=== PATIENT | female | born 1990 | race Caucasian/White ===

== ENCOUNTER → 2017-03-09 | Outpatient (CLI) | payer OTHER ==
[~2017-03-09] MED LIST: COLA100C5 PO; IBUP60TA PO; PERCOCET PO
[2017-03-10 09:23] LABS: FREE T4 0.93 NG/DL (0.76-1.46)
== END ==
LOC: M SMT 13:54
PROVIDERS: ATTEND Advanced Practice Midwife
DX: E06.9 Thyroiditis, unspecified (principal)

== ENCOUNTER → 2017-05-26 | Outpatient (CLI) | payer OTHER ==
--- NOTE | 2017-05-26 11:20 | REP ---
ULTRASOUND LEFT BREAST: HISTORY: Palpable lump for 2 weeks, breast feeding. Real-time sonographic evaluation of the left breast performed in the region of 11 to 3 o'clock in the region of a palpable abnormality. There is dense fibroglandular tissue present. No cystic or solid nodule is seen. IMPRESSION: ACR 2 benign. No cystic or solid nodule identified in the region of the reported palpable abnormality between 11 and 3 o'clock. Dense fibroglandular tissue is seen. Signed by Gael Best MD 05/26/2017 05:23 P
== END ==
LOC: M RAD 09:12
PROVIDERS: ATTEND Advanced Practice Midwife
DX: N63.21 Unspecified lump in the left breast, upper outer quadrant (principal)

== ENCOUNTER → 2017-12-04 | Outpatient (CLI) | payer OTHER ==
[2017-12-04 13:12] LABS: BASO % 0.1 % (0.0-1.0); EOS % 0.5 % (0.0-3.0); HEMOGLOBIN 14.3 g/dl (12.0-15.5); IMMATURE GRANULOCYTE % 0.4 % (0-3.0); LYMPH # 1.2 10^3/uL (1.5-6.5); LYMPH % 14.4 % (24.0-44.0); MEAN CORPUSCULAR HEMOGLOBIN 30.6 pg (27.0-33.0); MEAN CORPUSCULAR HGB CONC 34.9 g/dl (32.0-36.5); MEAN CORPUSCULAR VOLUME 87.6 fl (80.0-96.0); MONO # 0.5 10^3/uL (0.0-0.8); MONO % 5.7 % (0.0-5.0); NEUTROPHILS # 6.3 10^3/uL (1.8-7.7); NEUTROPHILS % 78.9 % (36.0-66.0); PLATELET COUNT, AUTOMATED 192 10^3/uL (150-450); RED BLOOD COUNT 4.68 10^6/uL (4.00-5.40); RED CELL DISTRIBUTION WIDTH 12.4 % (11.5-14.5)
[2017-12-04 14:04] LABS: RUBELLA IgG QUALITATIVE IMMUNE (IMMUNE)
[2017-12-04 14:07] LABS: HBsAg Prenatal NEGATIVE (NEGATIVE)
[2017-12-04 14:34] LABS: HIV 1&2 SCREEN CENTAUR NEGATIVE (NEGATIVE)
[2017-12-04 14:34] LABS: HEPATITIS C VIRUS ABY INDEX 0.1 INDEX (<0.8)
[2017-12-04 14:55] LABS: CHLAMYDIA DNA AMPLIFICATION NEGATIVE (NEGATIVE); GC DNA AMPLIFICATION NEGATIVE (NEGATIVE)
== END ==
LOC: M SMT 09:59
DX: Z34.81 Encounter for supervision of other normal pregnancy, first trimester (principal); Z3A.08 8 weeks gestation of pregnancy
CPT/HCPCS: 86762

== ENCOUNTER → 2018-01-27 | Outpatient (REF) | payer OTHER | LOC: M WUC 01-28 10:23 | DX: R35.0 Frequency of micturition (principal) ==

== ENCOUNTER → 2018-02-23 | Outpatient (CLI) | payer OTHER | LOC: M RAD 17:10 | DX: Z34.82 Encounter for supervision of other normal pregnancy, second trimester (principal) | CPT/HCPCS: 76811 ==

== ENCOUNTER → 2018-04-09 | Outpatient (CLI) | payer OTHER ==
[2018-04-09 17:29] LABS: GLUCOSE CHALLENGE TEST 1 HOUR 91 MG/DL (LESS THAN 140)
[2018-04-09 17:31] LABS: HEMATOCRIT 34.1 % (36.0-47.0); HEMOGLOBIN 11.7 g/dl (12.0-15.5); MEAN CORPUSCULAR HEMOGLOBIN 30.8 pg (27.0-33.0); MEAN CORPUSCULAR HGB CONC 34.3 g/dl (32.0-36.5); MEAN CORPUSCULAR VOLUME 89.7 fl (80.0-96.0); PLATELET COUNT, AUTOMATED 188 10^3/uL (150-450); RED CELL DISTRIBUTION WIDTH 13.4 % (11.5-14.5); WHITE BLOOD COUNT 9.3 10^3/uL (4.0-10.0)
== END ==
LOC: M SMT 13:12
DX: Z36.89 Encounter for other specified antenatal screening (principal)
CPT/HCPCS: 82950

== ENCOUNTER → 2018-06-15 | Outpatient (REF) | payer OTHER ==
[~2018-06-15] MED LIST changes: +PREN200C PO
== END ==
LOC: M LAB REF 17:06
PROVIDERS: ATTEND Advanced Practice Midwife
DX: O34.219 Maternal care for unspecified type scar from previous cesarean delivery (principal)

== ENCOUNTER 2018-07-05 05:35 | Inpatient (IN) | payer OTHER ==
[2018-07-05] VITALS (8 sets, daily range): BP systolic 96–105; BP diastolic 53–68
[~2018-07-05] VITALS: Ht 154.9 cm; Wt 66.0 kg
[2018-07-05] MEDS ORDERED: LR 1,000 ML IV ONE (05:45)
[2018-07-05] MEDS ORDERED: BICITRA 30ML SOLN UDC PO ONE (05:45)
[2018-07-05] MEDS ORDERED: TUMS500C PO (05:46)
[2018-07-05] MEDS ORDERED: LR 1,000 ML IV SCH ×2 (06:30→09:30)
[2018-07-05 06:34] LABS: HEMATOCRIT 35.2 % (36.0-47.0); HEMOGLOBIN 11.9 g/dl (12.0-15.5); MEAN CORPUSCULAR HEMOGLOBIN 30.6 pg (27.0-33.0); MEAN CORPUSCULAR HGB CONC 33.8 g/dl (32.0-36.5); MEAN CORPUSCULAR VOLUME 90.5 fl (80.0-96.0); PLATELET COUNT, AUTOMATED 161 10^3/uL (150-450); RED BLOOD COUNT 3.89 10^6/uL (4.00-5.40); WHITE BLOOD COUNT 11.6 10^3/uL (4.0-10.0)
[2018-07-05] MEDS ORDERED: NALOXONE INJ 0.4 MG/1 ML VIAL (J2310) IV PRN ×2 (07:44)
[2018-07-05] MEDS ORDERED: diphenhydrAMINE INJ 50MG/ML VIAL (J1200) IV PRN (07:44)
[2018-07-05] MEDS ORDERED: ONDANSETRON 4MG/2ML VIAL (J2405) IV PRN ×2 (07:44→09:15)
[2018-07-05] MEDS ORDERED: NALBUPHINE HCL 10 MG/ML AMP (J2300) IV PRN ×2 (07:44→09:30)
[2018-07-05] MEDS ORDERED: METOCLOPRAMIDE INJ 10MG/2ML VIAL (J2765) As Ordered ONE (07:52)
[2018-07-05] MEDS ORDERED: PHENYLephrine HCL 500 MCG/5 ML (100MCG/ML) SYRINGE (J2370) As Ordered ONE (07:52)
[2018-07-05] MEDS ORDERED: MORPHINE PRES-FREE INJ 10 MG/10 ML VIAL (J2274) As Ordered ONE (07:52)
[2018-07-05] MEDS ORDERED: OXYTOCIN INJ 10 UNITS/ML VIAL (J2590) As Ordered ONE (07:52)
[2018-07-05] MEDS ORDERED: FAMOTIDINE INJ 20MG/2ML VIAL (S0028) As Ordered ONE (07:55)
[2018-07-05] MEDS ORDERED: ONDANSETRON 4MG/2ML VIAL (J2405) As Ordered ONE (08:30)
[2018-07-05] MEDS ORDERED: OXYTOCIN DRIP 30 UNITS in APPROPRIATE DILUENT 1 EA IV SCH (09:07)
[2018-07-05] MEDS ORDERED: MOM 30ML SUSPENSION UDC PO PRN (09:15)
[2018-07-05] MEDS ORDERED: PERCOCET 5MG/325MG TAB PO PRN ×2 (09:15→09:30)
[2018-07-05] MEDS ORDERED: MEASLES,MUMPS,RUBELLA VACCINE INJ (MMR-II) (90707) SC SCH (09:15)
[2018-07-05] MEDS ORDERED: RHOGAM 300 MCG (1500 IU) INJ (J2790) IM SCH (09:15)
[2018-07-05] MEDS ORDERED: MEPERIDINE INJ 25 MG/ML VIAL (J2175) IV PRN (09:30)
[2018-07-05] MEDS ORDERED: KETOROLAC 30 MG/ML VIAL (J1885) IV PRN (09:30)
[2018-07-05] MEDS ORDERED: fentaNYL 100 MCG/2 ML INJECTION (J3010) IV PRN (09:30)
[2018-07-05] MEDS ORDERED: HYDROMORPHONE HCL 0.5 MG/ 0.5 ML SYRINGE (J1170 PER 1) IV PRN (09:30)
--- NOTE | 2018-07-05 09:34 | RO ---
DATE OF PROCEDURE: 07/05/2018 PREOPERATIVE DIAGNOSES: 1. Intrauterine at 39 weeks. 2. History of two prior sections for a repeat section. POSTOPERATIVE DIAGNOSES: 1. Intrauterine at 39 weeks. 2. History of two prior sections for a repeat section. PROCEDURE PERFORMED: Repeat section. SURGEON: Vivian Slade MD SNOW REMOVAL/PLOWING: Kavita Gill CNM ANESTHESIA: Spinal. ESTIMATED BLOOD LOSS: 500 mL. INTRAVENOUS FLUIDS: 1250 mL of Lactated Ringer's solution. URINE OUTPUT: 150 mL. SPECIMENS: None. PREOPERATIVE ANTIBIOTICS: 2 grams of Ancef. OPERATIVE FINDINGS: Liveborn male infant, scores of 9 and 9, weight was 3250 grams or 7 pounds 3 ounces. DESCRIPTION OF OPERATION: After informed consent was obtained and written consent was reviewed, the patient as brought to the operating room where spinal anesthesia was placed. She was then placed in supine position with a left lateral tilt. A Lezama catheter was placed and set to gravity. She was then prepped and draped in a normal sterile fashion. A time out in the operating room was then performed identifying the patient, procedure to be performed, as well as drug allergies. Anesthesia was tested and deemed to be adequate. Her previous Pfannenstiel skin incision was then excised. The incision was carried down to the underlying rectus fascia and was scored. This incision was extended bilaterally. The fascia was then dissected off the underlying rectus muscles, both superiorly and inferiorly. The rectus muscles were then in the midline. The peritoneum was then entered sharply. The vesicouterine peritoneum was then identified. It was tented and excised to create a bladder flap. The bladder blade was then placed to retract back the bladder. A curvilinear incision was then made in the lower uterine segment. An amniotomy was then performed productive of clear fluid. The head was brought to the level of the incision atraumatically and was delivered along with shoulders and corpus. The cord was then clamped times two and was cut. The infant was taken over to the warmer with a good cry. Placenta was then delivered grossly intact. The uterus was then exteriorized and cleared of all clots and debris. The uterine incision was then closed in two layers using #0 Vicryl first in a running locking fashion followed by a second layer for imbrication in a running, nonlocking fashion. Several figure-of-8 stitches were placed for hemostasis. The abdomen was then suctioned, the uterus was returned and the patient's abdomen was reinspected and noted to be hemostatic. The anterior peritoneum was then reapproximated with #3-0 Vicryl. The fascia was then closed using #0 Vicryl in a running nonlocking fashion. The subcutaneous tissue was then irrigated and suctioned. Several subdermal stitches were placed with #3-0 Vicryl. The skin was closed with #4-0 Monocryl in a subcuticular fashion. The incision was then cleaned and dried. Steri-Strips were applied over the incision, and the incision was then dressed. The patient was then taken over to recovery in stable condition. Counts were correct. The couple has decided to name their son, Toi. Kavita Gill, my neurosurgical physician assistant, play an essential role in the surgery. She assisted with tissue identification and retraction, delivery of the , as well as wound closure.
[2018-07-05] MEDS ORDERED: OXYTOCIN 30 UNITS IN 0.9% NaCl 500ML IV BAG (J2590) As Ordered ONE (09:39)
[2018-07-05] MEDS: LR 1,000 ML IV SCH ×2 (10:53→14:29)
[2018-07-05] MEDS: METOCLOPRAMIDE INJ 10MG/2ML VIAL (J2765) IV PRN ×2 (13:03→19:49)
[2018-07-05] MEDS: KETOROLAC 30 MG/ML VIAL (J1885) IV SCH ×2 (13:03→17:39)
[2018-07-06] MEDS: KETOROLAC 30 MG/ML VIAL (J1885) IV SCH ×2 (00:12→05:57)
[2018-07-06 02:00] VITALS: BP 99/57
[2018-07-06 06:05] VITALS: BP 99/54
[2018-07-06 06:50] LABS: HEMATOCRIT 33.4 % (36.0-47.0); MEAN CORPUSCULAR HGB CONC 32.9 g/dl (32.0-36.5); PLATELET COUNT, AUTOMATED 185 10^3/uL (150-450); RED BLOOD COUNT 3.67 10^6/uL (4.00-5.40); WHITE BLOOD COUNT 17.5 10^3/uL (4.0-10.0)
[2018-07-06] MEDS: DOCUSATE SODIUM 100 MG CAP PO PRN ×2 (08:08→21:35)
[2018-07-06] MEDS: PRENATAL VITAMINS CHEWABLE TABLET PO SCH (08:08)
[2018-07-06] MEDS: PERCOCET 5MG/325MG TAB PO PRN ×2 (08:59→17:06)
[2018-07-06 10:02] VITALS: BP 90/53
[2018-07-06 14:20] VITALS: BP 107/66
[2018-07-06] MEDS: IBUPROFEN 800 MG TAB PO SCH ×2 (15:19→21:35)
[2018-07-06 18:07] VITALS: BP 105/66
[2018-07-06 22:24] VITALS: BP 104/54
[2018-07-07 02:18] VITALS: BP 105/58
[2018-07-07] MEDS: IBUPROFEN 800 MG TAB PO SCH (05:53)
[2018-07-07] MEDS: PERCOCET 5MG/325MG TAB PO PRN (05:56)
[2018-07-07 06:04] VITALS: BP 108/56
--- NOTE | 2018-07-07 07:33 | DSES ---
DATE OF ADMISSION: 07/05/2018 DATE OF DISCHARGE: 07/07/2018 DISCHARGE DIAGNOSIS: Repeat section. DISCHARGE CONDITION: Stable. PROCEDURES PERFORMED WHILE IN HOSPITAL: 1. Spinal anesthesia. 2. section. HISTORY OF HOSPITAL COURSE: Ms. Smith is a 27-year-old 4, para 3 who presented for scheduled section. She underwent unremarkable section productive of a live born male infant. scores 9 and 9 . Weight was 3250 grams or 7 pounds 3 ounces. Estimated blood loss is 500 mL. She did well postoperatively. By postoperative day #2 had met all discharge criteria. She was discharged home in stable condition. PHYSICAL EXAMINATION: On date of discharge. Vital signs: Stable. She is afebrile. General appearance: Well-appearing in no acute distress. Her abdomen was soft, appropriately tender. Fundus is firm below umbilicus. Her incision was dressed. Extremities negative for calf tenderness. DISCHARGE MEDICATIONS: - ibuprofen - Percocet DISCHARGE INSTRUCTIONS: 1. She was instructed to followup in a 2 weeks for incision check. 2. Report severe pain, heaving vaginal bleeding, fever, or incisional issues. 3. Remain on pelvic rest.
[2018-07-07] MEDS ORDERED: PERC5TAB12 PO (07:48)
[2018-07-07] MEDS ORDERED: COLA100C5 PO (07:48)
[2018-07-07] MEDS ORDERED: MOTR200T44 PO (07:48)
[2018-07-07] MEDS ORDERED: MILK120011 PO (07:48)
[2018-07-07] MEDS: PRENATAL VITAMINS CHEWABLE TABLET PO SCH (07:58)
[2018-07-07 10:00] VITALS: BP 105/58
[2018-07-07] MEDS ORDERED: OXYC1TAB23 PO (18:16)
== END 2018-07-07 11:15 | disposition home or self-care (01) | DRG 540 ==
LOC: M LDI 05:35 → M OBS 11:09
PROVIDERS: ADMIT Obstetrics & Gynecology; ATTEND Obstetrics & Gynecology
PROC: 10D00Z1 Extraction of Products of Conception, Low, Open Approach (ICD-10-PCS; principal; 2018-07-05 09:30)
DX: O34.211 Maternal care for low transverse scar from previous cesarean delivery (principal); Z37.0 Single live birth; Z3A.39 39 weeks gestation of pregnancy

== ENCOUNTER → 2018-11-29 | Outpatient (REF) | payer OTHER ==
[~2018-11-29] MED LIST changes: +IBUP600T42 PO; -IBUP60TA PO; +MILK120011 PO; +MOTR200T44 PO; +OXYC1TAB23 PO; +PERC5TAB12 PO; +TUMS500C PO
== END ==
LOC: M LAB REF 17:24
PROVIDERS: ATTEND Advanced Practice Midwife
DX: Z12.4 Encounter for screening for malignant neoplasm of cervix (principal); N88.8 Other specified noninflammatory disorders of cervix uteri

== ENCOUNTER → 2020-04-16 | Outpatient (REF) | payer OTHER | LOC: M SFHCWAGY 10:21 | PROVIDERS: ATTEND Advanced Practice Midwife | DX: Z12.4 Encounter for screening for malignant neoplasm of cervix (principal) ==

== ENCOUNTER → 2021-07-10 | Outpatient (CLI) | payer OTHER ==
[2021-07-10 14:09] LABS: BASO % 0.6 % (0.0-1.0); EOS # 0.1 10^3/uL (0.0-0.5); EOS % 0.8 % (0.0-3.0); HEMATOCRIT 42.3 % (36.0-47.0); HEMOGLOBIN 14.1 g/dl (12.0-15.5); LYMPH # 1.5 10^3/uL (1.5-5.0); LYMPH % 20.8 % (24.0-44.0); MEAN CORPUSCULAR HEMOGLOBIN 29.4 pg (27.0-33.0); MEAN CORPUSCULAR HGB CONC 33.3 g/dl (32.0-36.5); MEAN CORPUSCULAR VOLUME 88.3 fl (80.0-96.0); MONO # 0.5 10^3/uL (0.0-0.8); MONO % 7.3 % (2.0-8.0); NEUTROPHILS % 70.4 % (36.0-66.0); PLATELET COUNT, AUTOMATED 264 10^3/uL (150-450); RED BLOOD COUNT 4.79 10^6/uL (4.00-5.40); WHITE BLOOD COUNT 7.1 10^3/uL (4.0-10.0)
[2021-07-10 14:58] LABS: BLOOD UREA NITROGEN 11 MG/DL (7-18); CALCIUM LEVEL 9.3 MG/DL (8.5-10.1); CARBON DIOXIDE LEVEL 29 MEQ/L (21-32); CHLORIDE LEVEL 105 MEQ/L (98-107); CREATININE FOR GFR 0.58 MG/DL (0.55-1.30); GLOMERULAR FILTRATION RATE > 60.0 (>60); GLUCOSE, FASTING 74 MG/DL (70-100); POTASSIUM SERUM 4.1 MEQ/L (3.5-5.1); SODIUM LEVEL 138 MEQ/L (136-145)
== END ==
LOC: M PLALAB 12:03
PROVIDERS: ATTEND Nurse Practitioner Family
DX: R94.6 Abnormal results of thyroid function studies (principal)

== ENCOUNTER → 2022-04-04 | Outpatient (CLI) | payer OTHER ==
[2022-04-04 17:20] LABS: BASO % 0.2 % (0.0-1.0); EOS # 0.1 10^3/uL (0.0-0.5); HEMATOCRIT 43.8 % (36.0-47.0); HEMOGLOBIN 14.6 g/dl (12.0-15.5); LYMPH # 1.4 10^3/uL (1.5-5.0); LYMPH % 16.4 % (24.0-44.0); MEAN CORPUSCULAR HEMOGLOBIN 29.7 pg (27.0-33.0); MEAN CORPUSCULAR HGB CONC 33.3 g/dl (32.0-36.5); MONO # 0.4 10^3/uL (0.0-0.8); MONO % 5.3 % (2.0-8.0); NEUTROPHILS # 6.4 10^3/uL (1.5-8.5); NEUTROPHILS % 76.9 % (36.0-66.0); PLATELET COUNT, AUTOMATED 254 10^3/uL (150-450); RED BLOOD COUNT 4.92 10^6/uL (4.00-5.40); WHITE BLOOD COUNT 8.4 10^3/uL (4.0-10.0)
[2022-04-04 18:04] LABS: C REACTIVE PROTEIN QUANTITATIV < 0.30 MG/DL (0.00-0.30); RHEUMATOID FACTOR QUANT < 10.0 IU/ML (<15.0)
[2022-04-04 18:14] LABS: ERYTHROCYTE SEDIMENTATION RATE 6 mm/hr (0-20)
== END ==
LOC: M LAB 15:38
PROVIDERS: ATTEND Orthopaedic Surgery
DX: M50.123 Cervical disc disorder at C6-C7 level with radiculopathy (principal)

== ENCOUNTER → 2022-09-29 | Outpatient (REF) | payer OTHER ==
[~2022-09-29] MED LIST changes: +ACET-716 PO; +ONDA4TAB6 PO
== END ==
LOC: M SFHCWAGY 12:40
PROVIDERS: ATTEND Advanced Practice Midwife
DX: Z12.4 Encounter for screening for malignant neoplasm of cervix (principal); Z77.9 Other contact with and (suspected) exposures hazardous to health; R87.610 Atypical squamous cells of undetermined significance on cytologic smear of cervix (ASC-US)

== ENCOUNTER 2022-10-10 11:57 | Emergency (ER) | payer OTHER ==
[~2022-10-10] VITALS: Ht 154.9 cm; Wt 52.4 kg
[~2022-10-10 11:57] MED LIST changes: -ACET-716 PO; -ONDA4TAB6 PO
[2022-10-10 13:49] LABS: BASO % 0.2 % (0.0-1.0); EOS % 0.1 % (0.0-3.0); HEMATOCRIT 41.2 % (36.0-47.0); HEMOGLOBIN 14.2 g/dl (12.0-15.5); LYMPH % 9.9 % (24.0-44.0); MEAN CORPUSCULAR HEMOGLOBIN 30.5 pg (27.0-33.0); MEAN CORPUSCULAR HGB CONC 34.5 g/dl (32.0-36.5); MEAN CORPUSCULAR VOLUME 88.4 fl (80.0-96.0); MONO # 0.6 10^3/uL (0.0-0.8); MONO % 5.7 % (2.0-8.0); NEUTROPHILS # 8.9 10^3/uL (1.5-8.5); NEUTROPHILS % 83.8 % (36.0-66.0); PLATELET COUNT, AUTOMATED 260 10^3/uL (150-450); RED BLOOD COUNT 4.66 10^6/uL (4.00-5.40); WHITE BLOOD COUNT 10.6 10^3/uL (4.0-10.0)
[2022-10-10 14:10] LABS: LIPASE 40 U/L (12-53)
[2022-10-10 14:12] LABS: ALBUMIN 4.3 G/DL (3.2-5.2); ALKALINE PHOSPHATASE 63 U/L (46-116); ALT/SGPT 14 U/L (7.0-40); AST/SGOT 19 U/L (<34); BILIRUBIN,DIRECT 0.3 MG/DL (<0.4); BILIRUBIN,TOTAL 0.9 MG/DL (0.3-1.2); BLOOD UREA NITROGEN 8 MG/DL (9-23); CALCIUM LEVEL 9.3 MG/DL (8.5-10.1); CARBON DIOXIDE LEVEL 24 MMOL/L (20-31); CHLORIDE LEVEL 103 MMOL/L (98-107); CREATININE FOR GFR 0.54 MG/DL (0.55-1.30); GLOMERULAR FILTRATION RATE > 60.0 (>60); GLUCOSE, FASTING 62 MG/DL (60-100); POTASSIUM SERUM 3.5 MMOL/L (3.5-5.1); SODIUM LEVEL 139 MMOL/L (136-145); TOTAL PROTEIN 7.2 G/DL (5.7-8.2)
[2022-10-10 14:22] LABS: HCG, SERUM QUALITATIVE NEGATIVE (NEGATIVE)
[2022-10-10] MEDS ORDERED: KETOROLAC 30 MG/ML 1ML VIAL IV ONE (15:15)
[2022-10-10] MEDS ORDERED: NS 1,000 ML IV ONE (15:15)
[2022-10-10] MEDS ORDERED: ONDANSETRON 4MG 2ML VIAL IV ONE (15:15)
[2022-10-10] MEDS ORDERED: ACET-716 PO (16:18)
[2022-10-10] MEDS ORDERED: ONDA4TAB6 PO (16:18)
[2022-10-10 16:28] VITALS: BP 109/70
== END 2022-10-10 16:37 | disposition home or self-care (01) ==
LOC: M ED 11:57
DX: N83.201 Unspecified ovarian cyst, right side (principal); F41.9 Anxiety disorder, unspecified; F32.9 Major depressive disorder, single episode, unspecified; Z79.899 Other long term (current) drug therapy; Z88.2 Allergy status to sulfonamides; Z88.5 Allergy status to narcotic agent
CPT/HCPCS: 76830; 80048; 80076; 81001; 83690; 84703; 85025; 86850; 86900; 86901; 93976; 96361; 96374; 96375; 99284; J1885; J2405

== ENCOUNTER → 2022-12-02 | Outpatient (CLI) | payer OTHER ==
[~2022-12-02] MED LIST changes: +ACET-716 PO; +ONDA4TAB6 PO
== END ==
LOC: M WHC 11:50
PROVIDERS: ATTEND Advanced Practice Midwife
DX: N85.4 Malposition of uterus (principal); N83.201 Unspecified ovarian cyst, right side

== ENCOUNTER → 2023-08-03 | Outpatient (CLI) | payer OTHER ==
[2023-08-03 13:24] LABS: BASO % 0.3 % (0.0-1.0); EOS # 0.1 10^3/uL (0.0-0.5); EOS % 0.9 % (0.0-3.0); HEMATOCRIT 39.8 % (36.0-47.0); HEMOGLOBIN 13.5 g/dl (12.0-15.5); LYMPH # 1.3 10^3/uL (1.5-5.0); LYMPH % 17.5 % (24.0-44.0); MEAN CORPUSCULAR HEMOGLOBIN 30.8 pg (27.0-33.0); MEAN CORPUSCULAR HGB CONC 33.9 g/dl (32.0-36.5); MEAN CORPUSCULAR VOLUME 90.7 fl (80.0-96.0); MONO # 0.6 10^3/uL (0.0-0.8); MONO % 7.2 % (2.0-8.0); NEUTROPHILS # 5.6 10^3/uL (1.5-8.5); NEUTROPHILS % 73.7 % (36.0-66.0); PLATELET COUNT, AUTOMATED 220 10^3/uL (150-450); RED BLOOD COUNT 4.39 10^6/uL (4.00-5.40); WHITE BLOOD COUNT 7.6 10^3/uL (4.0-10.0)
[2023-08-03 13:50] LABS: THYROID STIMULATING HORMONE 1.997 uIU/ML (0.55-4.78)
[2023-08-03 13:51] LABS: TOTAL 25(OH) VITAMIN D 54.1 NG/ML (20.0-100.0)
[2023-08-03 14:02] LABS: ALBUMIN 3.8 G/DL (3.2-5.2); ALKALINE PHOSPHATASE 56 U/L (46-116); ALT/SGPT 15 U/L (7.0-40); AST/SGOT 14 U/L (<34); BILIRUBIN,TOTAL 0.5 MG/DL (0.3-1.2); BLOOD UREA NITROGEN 12 MG/DL (9-23); CALCIUM LEVEL 8.8 MG/DL (8.5-10.1); CARBON DIOXIDE LEVEL 30 MMOL/L (20-31); CHLORIDE LEVEL 108 MMOL/L (98-107); CHOLESTEROL LEVEL 149 MG/DL (<200); CHOLESTEROL RISK RATIO 2.59 (<5); GLOMERULAR FILTRATION RATE > 60.0 (>60); GLUCOSE, FASTING 101 MG/DL (60-100); HDL CHOLESTEROL 57.5 MG/DL (>40); LDL CHOLESTEROL 70.1 MG/DL (<100); NON-HDL-C 91.5 MG/DL; POTASSIUM SERUM 3.7 MMOL/L (3.5-5.1); SODIUM LEVEL 140 MMOL/L (136-145); TOTAL PROTEIN 6.5 G/DL (5.7-8.2); TRIGLYCERIDES LEVEL 107 MG/DL (<150)
== END ==
LOC: M WUC 08:59
PROVIDERS: ATTEND Nurse Practitioner Family
DX: Z00.00 Encounter for general adult medical examination without abnormal findings (principal)

== ENCOUNTER → 2023-08-31 | Outpatient (CLI) | payer OTHER | LOC: M SOG 13:13 | PROVIDERS: ATTEND Orthopaedic Surgery | DX: M54.2 Cervicalgia (principal) ==

== ENCOUNTER → 2023-10-26 | Outpatient (REF) | payer OTHER | LOC: M SFHCWAGY 15:09 | PROVIDERS: ATTEND Advanced Practice Midwife | DX: Z12.4 Encounter for screening for malignant neoplasm of cervix (principal) ==

== ENCOUNTER → 2023-11-20 | Outpatient (CLI) | payer OTHER ==
[~2023-11-20] MED LIST changes: +ONDA-282 PO; -ONDA4TAB6 PO
== END ==
LOC: M WHC 08:29
PROVIDERS: ATTEND Advanced Practice Midwife
DX: N83.201 Unspecified ovarian cyst, right side (principal)

== ENCOUNTER → 2024-02-19 | Outpatient (CLI) | payer OTHER ==
[2024-02-19 19:10] LABS: GLUCOSE,RANDOM 81 MG/DL (LESS THAN 200); HCG, SERUM QUALITATIVE NEGATIVE (NEGATIVE)
[2024-02-19 19:11] LABS: THYROID STIMULATING HORMONE 1.603 uIU/ML (0.55-4.78)
[2024-02-19 19:12] LABS: TESTOSTERONE 35 NG/DL (14-76)
[2024-02-19 19:14] LABS: LUTEINIZING HORMONE 15.5 mIU/ML
[2024-02-25 17:58] LABS: INSULIN FREE 2.8 uIU/mL (1.5-14.9)
[2024-02-26 19:08] LABS: INSULIN TOTAL2 4.6 uIU/mL
== END ==
LOC: M WUC 11:54
PROVIDERS: ATTEND Physician Assistant
DX: E28.2 Polycystic ovarian syndrome (principal)

== ENCOUNTER → 2024-05-18 | Outpatient (CLI) | payer OTHER ==
[2024-05-18 12:28] LABS: BASO % 0.3 % (0.0-1.0); EOS # 0.1 10^3/uL (0.0-0.5); EOS % 0.7 % (0.0-3.0); HEMOGLOBIN 13.7 g/dl (12.0-15.5); LYMPH # 1.2 10^3/uL (1.5-5.0); MEAN CORPUSCULAR HEMOGLOBIN 29.7 pg (27.0-33.0); MEAN CORPUSCULAR HGB CONC 34.3 g/dl (32.0-36.5); MEAN CORPUSCULAR VOLUME 86.6 fl (80.0-96.0); MONO # 0.4 10^3/uL (0.0-0.8); MONO % 5.5 % (2.0-8.0); NEUTROPHILS # 5.9 10^3/uL (1.5-8.5); NEUTROPHILS % 77.1 % (36.0-66.0); PLATELET COUNT, AUTOMATED 258 10^3/uL (150-450); RED BLOOD COUNT 4.62 10^6/uL (4.00-5.40); WHITE BLOOD COUNT 7.7 10^3/uL (4.0-10.0)
[2024-05-18 12:50] LABS: INR 0.87; PARTIAL THROMBOPLASTIN TIME 25.5 SECONDS (24.8-34.2); PROTHROMBIN TIME 12.2 SECONDS (12.5-14.5)
[2024-05-18 13:04] LABS: ALBUMIN 3.5 G/DL (3.2-5.2); ALKALINE PHOSPHATASE 62 U/L (35-104); ALT/SGPT 17 U/L (7.0-40); AST/SGOT 9 U/L (<34); BILIRUBIN,DIRECT < 0.1 MG/DL (<0.4); BILIRUBIN,TOTAL 0.2 MG/DL (0.3-1.2); BLOOD UREA NITROGEN 13 MG/DL (9-23); CALCIUM LEVEL 9.3 MG/DL (8.5-10.1); CARBON DIOXIDE LEVEL 26 MMOL/L (20-31); CHLORIDE LEVEL 107 MMOL/L (98-107); CREATININE FOR GFR 0.58 MG/DL (0.55-1.30); GLOMERULAR FILTRATION RATE > 60.0 (>60); GLUCOSE, FASTING 87 MG/DL (60-100); IRON (FE) 44 UG/DL (50-170); PERCENT SATURATION 10.2 % (13.2-45.0); POTASSIUM SERUM 4.1 MMOL/L (3.5-5.1); SODIUM LEVEL 140 MMOL/L (136-145); TOTAL IRON BINDING CAPACITY 431 UG/DL (250-425)
[2024-05-18 13:06] LABS: FERRITIN 37.3 NG/ML (7.3-270.7); THYROID STIMULATING HORMONE 1.566 uIU/ML (0.55-4.78)
[2024-05-18 14:21] LABS: FREE T4 1.14 NG/DL (0.89-1.76)
== END ==
LOC: M WUC 10:17
PROVIDERS: ATTEND Nurse Practitioner Family
DX: D70.9 Neutropenia, unspecified (principal); R58 Hemorrhage, not elsewhere classified

== ENCOUNTER → 2024-06-22 | Outpatient (REF) | payer OTHER | LOC: M LAB REF 16:55 | PROVIDERS: ATTEND Nurse Practitioner Family | DX: N39.0 Urinary tract infection, site not specified (principal) ==

== ENCOUNTER → 2024-06-29 | Outpatient (REF) | payer OTHER | LOC: M SFHCDERM 18:05 | PROVIDERS: ATTEND Dermatology | DX: D23.5 Other benign neoplasm of skin of trunk (principal) ==

== ENCOUNTER → 2025-05-08 | Outpatient (CLI) | payer OTHER ==
[2025-05-08 18:39] LABS: ALT/SGPT 16 U/L (7.0-40); AST/SGOT 16 U/L (<34); C REACTIVE PROTEIN QUANTITATIV 1.15 MG/DL (<1.0); CALCIUM LEVEL 9.6 MG/DL (8.5-10.1); CARBON DIOXIDE LEVEL 24 MMOL/L (20-31); CHLORIDE LEVEL 101 MMOL/L (98-107); CREATININE FOR GFR 0.58 MG/DL (0.55-1.30); GLOMERULAR FILTRATION RATE > 90.0 (>60); POTASSIUM SERUM 3.2 MMOL/L (3.5-5.1); RHEUMATOID FACTOR QUANT < 3.5 IU/ML (<14); SODIUM LEVEL 137 MMOL/L (136-145)
[2025-05-08 18:41] LABS: FREE T4 1.19 NG/DL (0.89-1.76)
[2025-05-08 19:04] LABS: BASO # 0.0 10^3/uL (0.0-0.2); BASO % 0.4 % (0.0-1.0); EOS # 0.1 10^3/uL (0.0-0.5); EOS % 0.6 % (0.0-3.0); LYMPH # 1.6 10^3/uL (1.5-5.0); LYMPH % 14.9 % (24.0-44.0); MONO # 0.5 10^3/uL (0.0-0.8); MONO % 4.8 % (2.0-8.0); NEUTROPHILS # 8.6 10^3/uL (1.5-8.5); NEUTROPHILS % 78.9 % (36.0-66.0); PLATELET COUNT, AUTOMATED 278 10^3/uL (150-450)
== END ==
LOC: M WUC 13:39
PROVIDERS: ATTEND Nurse Practitioner Family
DX: M12.9 Arthropathy, unspecified (principal)